=== PATIENT | female | born 1965 | race Asian ===

== ENCOUNTER 2024-07-21 04:28 | Day surgery (SDC) | payer OTHER ==
[2024-07-19 15:02] VITALS: BMI 27.4
[2024-07-21 12:47] VITALS: RESP 16; TEMP 98
[2024-07-21 12:56] VITALS: BP 126/57; PULSE 53
== END 2024-07-21 12:48 | disposition home or self-care (01) ==
LOC: JASU-ENDO 04:28
PROVIDERS: ATTEND Internal Medicine Gastroenterology
PROC: 0DJD8ZZ Inspection of Lower Intestinal Tract, Via Natural or Artificial Opening Endoscopic (ICD-10-PCS; principal; 2024-07-21 11:00)
DX: K57.30 Diverticulosis of large intestine without perforation or abscess without bleeding (principal); D12.0 Benign neoplasm of cecum; K64.8 Other hemorrhoids
CPT/HCPCS: 88305-TC